=== PATIENT | male | born 1995 | race Caucasian/White ===

== ENCOUNTER 2022-01-21 12:42 | Emergency (ER) | payer OTHER ==
[~2022-01-21] VITALS: Ht 185.4 cm; Wt 82.0 kg
[2022-01-21 12:53] VITALS: BP 117/43
[2022-01-21] MEDS ORDERED: KETOROLAC 15MG/ML VIAL IM ONE (13:00)
[2022-01-21] MEDS ORDERED: HYDR-4001 MT (15:34)
== END 2022-01-21 15:45 | disposition home or self-care (01) ==
LOC: ER 13:02
DX: S92.592A Other fracture of left lesser toe(s), initial encounter for closed fracture (principal); S92.535A Nondisplaced fracture of distal phalanx of left lesser toe(s), initial encounter for closed fracture; Y93.89 Activity, other specified; S90.32XA Contusion of left foot, initial encounter; Y93.41 Activity, dancing; X50.1XXA Overexertion from prolonged static or awkward postures, initial encounter; Y92.89 Other specified places as the place of occurrence of the external cause
CPT/HCPCS: 29515; 73610; 73630; 96372; 99284; J1885